=== PATIENT | female | born 1980 | race Caucasian/White ===

== ENCOUNTER → 2016-11-26 | Outpatient (CLI) | payer SELFPAY ==
[~2016-11-26] MED LIST: ESOM20CA PO; FURO-125 PO; METH4TAB PO; NAPR500T PO; ONDA-42 SL; POTA10TA10 PO; PRD20T PO; RNT150T PO; TRAM50TA2 PO
--- OUTSIDE RECORDS SUMMARY | 2016-11-26 16:42 | XMS REPORT | Continuity of Care Document ---
Author Author [facility] Organization [facility] Address Unknown Phone Unavailable Care Team Providers Care Tub Rider Name Role Phone LEXX SANZ MD PCP Insurance Providers Payer Name Policy Number Subscriber Name Relationship [facility] [id number] Rachel Ross 20 Self / Same As Patient Advance Directives Directive Response Recorded Date/Time Advance Directives No 04/09/14 10:54am Organ Donor Yes 04/09/14 10:54am Resuscitation Status Full Code 04/09/14 10:54am Problems No known problems or medical conditions. Medications Medication Dose Route Sig Days/Qty Instructions Order Date Discontinued Date Status Ranitidine HCl 1 Tab PO TWICE A DAY 30 Qty FOR STOMACH 05/20/11 Active Methylprednisolone 0 PO DIRECTED 1 Qty 04/09/14 04/09/14 Discontinued Ondansetron Hcl 4 Mg SL EVERY 4HRS 5 Qty 04/09/14 04/09/14 Discontinued Methylprednisolone 0 PO DIRECTED 1 Qty 04/09/14 Active Ondansetron Hcl 4 Mg SL EVERY 4HRS 5 Qty FOR NAUSEA AND VOMITING Active Social History Social History Problem Response Recorded Date/Time Alcohol Use Denies Use 04/09/2014 10:54am Recreational Drug Use No 04/09/2014 10:54am Smoking Status Never a Smoker 04/09/2014 10:54am Query Response Start Date Stop Date Smoking Status Never a Smoker Hospital Discharge Instructions No hospital discharge instructions. Plan of Care No plan of care. Functional Status No functional status results. Allergies, Adverse Reactions, Alerts Allergen Type Severity Reaction Status Last Updated Penicillins ([id number]) Allergy Active 05/20/11 TB SHOT Allergy Active 05/20/11 Immunizations No immunization records. Vital Signs Acute Vital Signs Vital Response Date/Time Temperature (Fahrenheit) 98.8 degrees F (97.6 - 99.5) Temperature Source Temporal Pulse Rate (adult) 88 bpm (60 - 90) Respiratory Rate 20 bpm (12 - 24) O2 Sat by Pulse Oximetry 96 % (88 - 100) Blood Pressure 148/87 mm Hg Pain Pain Intensity 0 Height (Feet) 5 feet Height (Calculated Centimeters) 152.931571 cm Weight (Pounds) 276 pounds Weight (Calculated Kilograms) 125.302678 kilograms Height 5 ft 0 in Weight 276 lb Body Mass Index 53.9 kg/m^2 Results Test Source Date Result Interp. Ref. Range Comments Activated Partial Thromboplast Time May 20, 2011 3:30pm 33 SEC N 24- 35 Alanine Aminotransferase (ALT/SGPT) May 20, 2011 3:30pm 36 U/L N 30- 65 Albumin May 20, 2011 3:30pm 3.7 G/DL N 3.4-5.0 Alkaline Phosphatase May 20, 2011 3:30pm 122 U/L N 50-136 Amylase Level May 20, 2011 3:30pm 37 U/L N 25-115 Aspartate Amino Transf (AST/SGOT) May 20, 2011 3:30pm 19 U/L N 15-37 B-Type Natriuretic Peptide May 20, 2011 3:30pm 21.9 PG/ML N 5.0- 100.0 BUN/Creatinine Ratio May 20, 2011 3:30pm 14 - Basophils # (Auto) May 20, 2011 3:30pm 0.1 10^3/uL N 0.0-0.1 Basophils (%) (Auto) May 20, 2011 3:30pm 1 % N 0-10 Blood Urea Nitrogen May 20, 2011 3:30pm 14 MG/DL N 7-18 Calcium Level May 20, 2011 3:30pm 8.7 MG/DL N 8.5-10.1 Carbon Dioxide Level May 20, 2011 3:30pm 29 MMOL/L N 21-32 Chloride Level May 20, 2011 3:30pm 104 MMOL/L N 101-110 Creatine Kinase MB May 20, 2011 3:30pm 0.9 NG/ML N 0.0-3.6 Creatinine May 20, 2011 3:30pm 1.0 MG/DL N 0.6-1.3 Eosinophils # (Auto) May 20, 2011 3:30pm 0.7 10^3/uL H 0.0-0.3 Eosinophils (%) (Auto) May 20, 2011 3:30pm 9 % N 0-10 Glucose Level May 20, 2011 3:30pm 92 MG/DL N 74-106 Hematocrit May 20, 2011 3:30pm 40 % N 35-52 Hemoglobin May 20, 2011 3:30pm 14.4 G/DL N 11.5-16.0 Lipase May 20, 2011 3:30pm 134 U/L N 73-393 Lymphocytes # (Auto) May 20, 2011 3:30pm 2.1 X 10^3 N 1.0-4.0 Lymphocytes (%) (Auto) May 20, 2011 3:30pm 28 % N 12-44 Mean Corpuscular Hemoglobin May 20, 2011 3:30pm 29 PG N 25-34 Mean Corpuscular Hemoglobin Concent May 20, 2011 3:30pm 36 G/DL N 32- 36 Mean Corpuscular Volume May 20, 2011 3:30pm 82 FL N 80-99 Mean Platelet Volume May 20, 2011 3:30pm 11.5 FL H 7.4-10.4 Monocytes # (Auto) May 20, 2011 3:30pm 0.6 X 10^3 N 0.0-1.0 Monocytes (%) (Auto) May 20, 2011 3:30pm 8 % N 0-12 Neutrophils # (Auto) May 20, 2011 3:30pm 4.1 X 10^3 N 1.8-7.8 Neutrophils (%) (Auto) May 20, 2011 3:30pm 55 % N 42-75 Platelet Count May 20, 2011 3:30pm 256 10^3/uL N 130-400 Potassium Level May 20, 2011 3:30pm 3.7 MMOL/L N 3.6-5.0 Prothromb Time International Ratio May 20, 2011 3:30pm 0.9 N 0.8-1.4 INTERPRETIVE DATASUGGESTED THERAPEUTIC RANGE FOR INR'S: VENOUS THROMBOSIS, PULMONARY EMBOLISM, OR PREVENTION OF SYSTEMIC EMBOLISM (EG. IN ATRIAL FIBRILLATION): 2.0 - 3.0 MECHANICAL PROSTHETIC HEART VALVES: 2.5 - 3.5* *NOTE: INR'S UP TO 4.5 MAY BE NECESSARY IN SELECTED GROUPS OF HIGH RISK PATIENTS. [employer] CONSENSUS CONFERENCE ON ANTITHROMBOTIC THERAPY (2000). Prothrombin Time May 20, 2011 3:30pm 12.7 SEC N 12.2-14.7 Red Blood Count May 20, 2011 3:30pm 4.91 10^6/uL N 4.35-5.85 Red Cell Distribution Width May 20, 2011 3:30pm 12.1 % N 10.0-14.5 Sodium Level May 20, 2011 3:30pm 138 MMOL/L N 135-145 Total Bilirubin May 20, 2011 3:30pm 0.4 MG/DL N 0.0-1.0 Total Creatine Kinase May 20, 2011 3:30pm 119 U/L N 1-159 Total Protein May 20, 2011 3:30pm 6.9 G/DL N 6.4-8.2 Troponin I May 20, 2011 3:30pm < 0.10 NG/ML 0.00-0.10 White Blood Count May 20, 2011 3:30pm 7.5 10^3/uL N 4.3-11.0 Estimat Glomerular Filtration Rate May 20, 2011 3:30pm > 60 - GFR INTERPRETIVE DATA UNITS FOR ESTIMATED GFR (eGFR): mL/min/1.73 M2 REFERENCE RANGE FOR ESTIMATED GFR (eGFR) eGFR NORMAL eGFR >60 MODERATELY DECREASED eGFR 30-59 SEVERLY DECREASED eGFR 15-29 KIDNEY FAILURE <15 (OR DIALYSIS) Procedures No known history of procedures. Encounters Encounter Location Date/Time Departed Emergency Room [facility] 04/09/14 10:28am Recent Diagnosis
--- NOTE | 2016-11-26 18:08 | Diagnostic Imaging Report ---
INDICATION: Positive TB skin test. FINDINGS: There were no radiographic features to suggest acute or chronic thoracic involvement by tuberculosis. The exam is stable and normal. The lungs are clear. The heart, hanna, and mediastinum appeared normal. No effusion, pneumothorax, or failure. IMPRESSION: Stable negative chest. Dictated by: Dictated on workstation # [id number]
== END ==
LOC: RAD 16:38
PROVIDERS: ATTEND Nurse Practitioner Family
DX: R76.11 Nonspecific reaction to tuberculin skin test without active tuberculosis (principal)
CPT/HCPCS: 71020

== ENCOUNTER → 2019-08-01 | Outpatient (CLI) | payer BC ==
[~2019-08-01] MED LIST changes: +NAPR-1071 PO; -NAPR500T PO
--- NOTE | 2019-08-01 15:38 | Diagnostic Imaging Report ---
PROCEDURE: US Thyroid. TECHNIQUE: Multiple real-time grayscale images were obtained of the thyroid in various projections. INDICATION: Thyroid swelling. FINDINGS: Right lobe of the thyroid measures 5.7 x 1.9 x 1.8 cm. Left lobe measures 5.1 x 1.7 x 1.4 cm. Isthmus measures 0.3 cm. There is a complex partially cystic, partially solid nodule in the inferior aspect of the left lobe of the thyroid measuring 2.1 x 1.3 x 1.5 cm. No other discrete solid or cystic nodules are appreciated. IMPRESSION: Complex partially cystic and solid nodule in the right lobe of the thyroid measuring up to 2.1 cm. This would be amenable to ultrasound-guided aspiration if clinically warranted. Otherwise unremarkable sonographic appearance of the thyroid. Dictated by: Dictated on workstation # [id number]
== END ==
LOC: RAD 14:50
PROVIDERS: ATTEND Nurse Practitioner Family
DX: E04.1 Nontoxic single thyroid nodule (principal)
CPT/HCPCS: 76536

== ENCOUNTER → 2019-08-10 | Outpatient (CLI) | payer BC ==
[~2019-08-10] VITALS: Ht 167.7 cm; Wt 124.5 kg
[~2019-08-10] MED LIST changes: +LIDOCAINE 1% INJ 20 ML 20 ML VIAL INJ ONE
--- NOTE | 2019-08-10 18:23 | Diagnostic Imaging Report ---
INDICATION: Thyroid nodule. Patient presents for ultrasound-guided fine-needle aspiration. Patient was brought to the procedure room, placed on the table in the supine position. Ultrasound imaging of the right neck was performed to evaluate appropriate entry site. The right neck was then prepped and draped in the usual sterile fashion. Small amount of 1% lidocaine was utilized for local anesthesia. A total of 4 passes were made into the solid nodule in the right lobe of the thyroid utilizing a 25-gauge needle. Fine-needle aspiration technique was performed. Slovan were removed and hemostasis was obtained. Patient tolerated the procedure well and left the department in stable condition. IMPRESSION: Ultrasound-guided fine needle aspiration right lobe thyroid nodule. Pathology results are currently pending. Dictated by: Dictated on workstation # [id number]
== END ==
LOC: RAD 13:39
PROVIDERS: ATTEND Nurse Practitioner Family
DX: E04.1 Nontoxic single thyroid nodule (principal)

== ENCOUNTER 2022-02-11 08:17 | Emergency (ER) | payer BC ==
[~2022-02-11] VITALS: Ht 167 cm; Wt 122.0 kg
[~2022-02-11 08:17] MED LIST changes: -LIDOCAINE 1% INJ 20 ML 20 ML VIAL INJ ONE; -TRAM50TA2 PO; +TRM50T PO
[2022-02-11] MEDS ORDERED: ONDANSETRON 4 MG (ZOFRAN) ORAL DISSOLVE TAB PO ONE (08:30)
[2022-02-11] MEDS ORDERED: NAPROXEN 250 MG (NAPROSYN) TABLET PO ONE (08:30)
--- NOTE | 2022-02-11 08:33 | ED Lower Extremity ---
General Chief Complaint: Lower Extremity Stated Complaint: R FOOT PAIN Nursing Triage Note: PT C/O R FOOT PAIN ONSET WEDNESDAY. PT REPORT STEPPED ON THE METAL BUCKLE OF HER SANDALS, DID NOT PUNCTURE SKIN, BUT HAS BEEN HAVING PAIN SINCE. Source: patient Exam Limitations: no limitations History of Present Illness Date Seen by Provider: February 11, 2022 Time Seen by Provider: 08:22 Initial Comments Patient is a 41-year-old female who presents to the emergency department today with a chief complaint of right foot pain. Patient states Wednesday she stepped on the bottle of a sandal, the point of the buckle was pointing upwards. She did not fall. She had immediate pain. Patient denies any puncture through the skin. She states since she stepped on it she has been having progressive, worsening pain in the foot. It is swollen, warm and red. She states she does not take any daily medications. She has been taking Tylenol for pain her last dose was last night. She states it is unbearable to try to bear weight on her right foot. She did try some ice for about 20 minutes but it seemed to intensify the pain. She denies numbness weakness or tingling in the leg. No known fevers at home. All other review of systems reviewed and negative except as stated. Onset: other (Wednesday (3 days)) Severity: severe Pain/Injury Location: right foot Method of Injury: other Modifying Factors: Worse With Movement Allergies and Home Medications Allergies Coded Allergies: Penicillins (Unverified Allergy, Unknown, 08/10/19) Uncoded Allergies: TB SHOT (Allergy, Unknown, 08/10/19) Patient Home Medication List Home Medication List Reviewed: Yes Cephalexin (Cephalexin) 500 Mg Tablet, 500 MG PO TID Prescribed by: DORIS ACUÑA on 02/11/22 0904 Esomeprazole Magnesium (Nexium) 20 Mg Capsule.dr, 20 MG PO for HEARTBURN, (Reported) Entered as Reported by: FLORIN LEE on 08/14/16 1359 Furosemide (Lasix) 20 Mg Tablet, 20 MG PO PRN, (Reported) Entered as Reported by: FLORIN LEE on 08/14/16 1359 Naproxen (Naprosyn) 500 Mg Tablet, 500 MG PO BID PRN for PAIN Prescribed by: IGGY RUBIN on 08/14/16 1625 Ondansetron (Ondansetron Odt) 4 Mg Tab.rapdis, 4 MG PO Q8H PRN for nausea Prescribed by: DORIS ACUÑA on 02/11/22 09 Potassium Chloride (Potassium Chloride) 10 Meq Tablet.er, 10 MEQ PO, (Reported) Entered as Reported by: FLORIN LEE on 08/14/16 1359 Prednisone (Prednisone) 20 Mg Tab, 40 MG PO DAILY Prescribed by: IGGY RUBIN on 08/14/16 162 Tramadol HCl (Tramadol HCl) 50 Mg Tablet, 50 MG PO Q4H PRN for PAIN Prescribed by: IGGY RUBIN on 08/14/16 162 Tramadol HCl (Tramadol HCl) 50 Mg Tablet, 50 MG PO Q6H PRN for PAIN Prescribed by: DORIS ACUÑA on 02/11/22 09 Review of Systems Constitutional: see HPI EENTM: no symptoms reported Respiratory: no symptoms reported Cardiovascular: no symptoms reported Gastrointestinal: nausea Musculoskeletal: joint pain (right foot) Skin: no symptoms reported Psychiatric/Neurological: No Symptoms Reported All Other Systems Reviewed Negative Unless Noted: Yes Past Etgclkj-Kgevqn-Zdbnfw Hx Patient Social History Tobacco Use?: No Use of E-Cig and/or Vaping dev: No Substance use?: No Alcohol Use?: No Pt feels they are or have been: No Immunizations Up To Date First/Initial COVID19 Vaccinat: YES, UNK WHEN Second COVID19 Vaccination Cl: YES, UNK WHEN COVID19 Vaccine Decorating Machine T[employer]: [employer] Seasonal Allergies Seasonal Allergies: No Past Medical History Tonsillectomy Last Menstrual Period: Jan 09, 2022 Gastroesophageal Reflux Family Medical History Other Conditions/Hx Physical Exam Vital Signs Vital Signs - First Documented 02/11/22 08:20 Temp 35.8 Pulse 110 Resp 20 B/P (MAP) 150/88 (108) Pulse Ox 97 O2 Delivery Room Air Capillary Refill : Height, Weight, BMI Height: 5'7" Weight: 275lbs. oz. 124.075084vh; 43.00 BMI Method:Stated General Appearance: WD/WN, no apparent distress Cardiovascular: regular rate, rhythm Respiratory: lungs clear, normal breath sounds, no respiratory distress, no accessory muscle use Hips: bilateral hip normal range of motion Legs: bilateral leg non-tender, bilateral leg normal inspection, bilateral leg normal range of motion, bilateral leg no evidence of injury Knees: bilateral knee non-tender, bilateral knee normal inspection, bilateral knee normal range of motion, bilateral knee no evidence of injury Ankles: bilateral ankle non-tender, bilateral ankle normal inspection, bilateral ankle normal range of motion, bilateral ankle no evidence of injury Feet: right foot pain, right foot soft tissue tenderness, right foot swelling (swelling plantar surface at the instep with tenderness and erythema) Neurologic/Psychiatric: alert, normal mood/affect, oriented x 3 Skin: normal color, warm/dry, other (erythema plantar surface of the right foot) Progress/Results/Core Measures Results/Orders Lab Results Laboratory Tests Test 02/11/22 08:35 Range/Units Glucometer 123 H 70-110 MG/DL My Orders Orders - DORIS ACUÑA MD Accucheck Stat ONCE (02/11/22 08:29) Naproxen Tablet (Naprosyn Tablet) (02/11/22 08:30) Ondansetron Oral Dissolve Tab (Zofran (02/11/22 08:30) Foot, Right, 3 View (02/11/22 08:29) Medications Given in ED Current Medications Medications Dose Ordered Sig/Maurizio Route Start Time Stop Time Status Last Admin Dose Admin Naproxen 500 mg ONCE ONCE PO 02/11/22 08:30 02/11/22 08:31 DC 02/11/22 08:33 500 MG Ondansetron HCl 4 mg ONCE ONCE PO 02/11/22 08:30 02/11/22 08:31 DC 02/11/22 08:33 4 MG Vital Signs/I&O 02/11/22 02/11/22 08:20 09:06 Temp 35.8 Pulse 110 88 Resp 20 18 B/P (MAP) 150/88 (108) 127/76 Pulse Ox 97 96 O2 Delivery Room Air Room Air Blood Pressure Mean: 108 Diagnostic Imaging Diagonstic Imaging: Xray Comments [facility] [place] NAME: JIM ROSS MED REC#: [id number] PT STATUS: REG ER : 1980 PHYSICIAN: DORIS ACUÑA MD ADMIT DATE: 02/11/22/ER Draft Date of Exam:02/11/22 FOOT, RIGHT, 3 VIEW INDICATION: Right foot pain. TECHNIQUE: AP, oblique, and lateral views of the right foot were obtained. FINDINGS: No definite acute fracture is seen. There is plantar and posterior calcaneal spurring. There are some calcifications adjacent to the base of the 5th metatarsal which appear chronic and may be the result of old injury. IMPRESSION: Chronic changes as described above with no acute abnormality. Dictated on workstation # [id number] Dict: 02/11/22 [id number] Trans: 02/11/22 [id number] [id number] Interpreted by: BRISEIDA HESTER MD Electronically signed by: Departure Impression Primary Impression: Cellulitis Qualified Codes: L03.115 - Cellulitis of right lower limb Disposition: HOME, SELF-CARE Condition: Improved Departure-Patient Inst. Decision time for Depature: 09:01 Referrals: ARNOL LOPEZ MD (PCP/Family) Primary Care Physician Patient Instructions: Cellulitis (Skin Infection), Adult ED Add. Discharge Instructions: Start taking the antibiotics today, 3 times a day for 10 days. Please finish the entire course. I have prescribed you pain medication and nausea medication as well. Ibuprofen can help with your pain as well. You can also take 3 tablets which is 600 mg every 6-8 hours with food as needed. Continue to ice and elevate your right foot as tolerated. Please call and make a follow-up appointment with your primary care physician in the next week to make sure you are continuing to improve. If after a couple of days you notice that the redness, pain and swelling are not improving please come back to the emergency room for reevaluation. Certainly come back sooner for any new, concerning or emergent complaints. Scripts Ondansetron (Ondansetron Odt) 4 Mg Tab.rapdis 4 MG PO Q8H PRN for nausea, #15 TAB Prov: DORIS ACUÑA MD 02/11/22 Tramadol HCl (Tramadol HCl) 50 Mg Tablet 50 MG PO Q6H PRN for PAIN, #10 TAB 0 Refills Prov: DORIS ACUÑA MD 02/11/22 Cephalexin (Cephalexin) 500 Mg Tablet 500 MG PO TID for 10 Days, #30 TAB Prov: DORIS ACUÑA MD 02/11/22 Copy Copies To 1: ARNOL LOPEZ MD ARIANNEDORIS MCMAHON MD February 11, 2022 08:33
--- NOTE | 2022-02-11 08:47 | Diagnostic Imaging Report ---
INDICATION: Right foot pain. TECHNIQUE: AP, oblique, and lateral views of the right foot were obtained. FINDINGS: No definite acute fracture is seen. There is plantar and posterior calcaneal spurring. There are some calcifications adjacent to the base of the 5th metatarsal which appear chronic and may be the result of old injury. IMPRESSION: Chronic changes as described above with no acute abnormality. Dictated by: Dictated on workstation # [id number]
[2022-02-11] MEDS ORDERED: CEPH500T PO (09:04)
[2022-02-11] MEDS ORDERED: TRM50T PO (09:04)
[2022-02-11] MEDS ORDERED: ONDA4TAB11 PO (09:04)
[2022-02-11 09:06] VITALS: BP 127/76
== END 2022-02-11 09:06 | disposition home or self-care (01) ==
LOC: EDUNIT# 08:17 → ER 08:18
DX: L03.115 Cellulitis of right lower limb (principal); Z88.0 Allergy status to penicillin
CPT/HCPCS: 73630; 82947

== ENCOUNTER 2023-02-10 05:34 | Outpatient (CLI) | payer BC ==
[~2023-02-10] VITALS: Ht 170.2 cm; Wt 125.9 kg
[~2023-02-10 05:34] MED LIST changes: +CEPH500T PO; +ONDA4TAB11 PO
[2023-02-10] MEDS ORDERED: OMEP-254 PO (11:06)
== END 2023-02-10 11:09 ==
LOC: PREOP 05:34
PROVIDERS: ATTEND Internal Medicine
DX: Z01.818 Encounter for other preprocedural examination (principal)

== ENCOUNTER 2023-02-19 07:04 | Day surgery (SDC) | payer BC ==
[~2023-02-19] VITALS: Ht 170.2 cm; Wt 125.9 kg
[~2023-02-19 07:04] MED LIST changes: +OMEP-254 PO
[2023-02-19] MEDS ORDERED: LACTATED RINGERS 1,000 ML IV STA (07:08)
[2023-02-19] MEDS ORDERED: HURRICAINE EXT TUBE (BENZOCAINE) XX PRN (07:15)
[2023-02-19 07:25] VITALS: BP 158/92
[2023-02-19] MEDS ORDERED: MIDAZOLAM 2 MG/2 ML (VERSED) VIAL ONE (07:43)
[2023-02-19] MEDS ORDERED: PROPOFOL INJECTION 50 ML IV ONE (07:43)
[2023-02-19] MEDS ORDERED: ONDANSETRON 4 MG/2 ML (SDV) Z0FRAN ONE (07:51)
--- NOTE | 2023-02-19 07:51 | Pre-Op Note & Conscious Sedat ---
Pre-Operative Progress Note Date H&P Reviewed: February 19, 2023 Time H&P Reviewed: 07:50 History & Physical: H&P Reviewed, Patient Examed, No changes noted Pre-Op Diagnosis: dysphagia Moderate Sedation PreProcedure ASA Score 2 Airway Lungs Heart ASA score ASA 1: a normal healthy patient ASA 2: a patient with a mild systemic disease (mid diabetes, controlled hypertension, obesity ASA 3: a patient with a severe systemic disease that limits activity (angina, COPD, prior Myocardial infarction) ASA 4: a patient with an incapacitating disease that is a constant threat to life (CHF, renal failure) ASA 5: a moribund patient not expected to survive 24 hrs. (ruptured aneurysm) ASA 6: a declared brain- patient whose organs are being harvested. For emergent operations, add the letter E after the classification Mallampati Classification Grade 2 Sedation Plan Analgesia, Amnesia, Plan communicated to team members, Discussed options with patient/fam, Discussed risks with patient/fam The patient is an appropriate candidate to undergo the planned procedure, sedation, and anesthesia. The patient immediately re-assessed prior to indication. ANOOP LOVE MD February 19, 2023 07:51
[2023-02-19 08:10] VITALS: BP 114/60
--- NOTE | 2023-02-19 08:11 | Progress Note-Post Operative ---
Post-Procedure Note Physician (s)/Assistant Professor Of German (s) Physician ANOOP LOVE MD Pre-Procedure Diagnosis Pre-Procedure Diagnosis: dysphagia Post-Procedure Diagnosis Post-operative diagnosis: The endoscope was inserted into the oral cavity and under direct visualization the esophagus is intubated. The endoscope was passed down the esophagus to the stomach and second portion of the duodenum. A careful inspection was made as the endoscope was withdrawn. Findings proximal mid and distal esophagus were unremarkable Z-line was distinct without evidence for erosive esophagitis or Quezada's change. Biopsies from the distal and midesophagus were obtained and submitted for histopathology evaluation and to evaluate for eosinophilic esophagitis. No evidence for hiatal hernia formation was noted. The cardia and fundus of the stomach were unremarkable. 3 erythematous patent to 10 mm nodules without ulceration were noted in the distal antrum photo was obtained there is no evidence for erosion or ulceration they were soft on biopsy which was obtained and submitted for histopathology. The pylorus the pyloric channel duodenal bulb and second portion of duodenum were unremarkable with normal villous appearing architecture no evidence for erosion or ulceration. A/P 1. No evidence for erosive esophagitis or mechanical obstruction was noted today. Biopsies were obtained and submitted for evaluation for eosinophilic esophagitis. 2. 3 8Three 8 to 10 mm erythematous nodules were noted in the distal antrum 1 was biopsied and submitted for histopathology there was no evidence for induration no other abnormalities noted on today's procedure. ANOOP LOVE MD February 19, 2023 08:11
[2023-02-19 08:15] VITALS: BP 115/66
[2023-02-19 08:20] VITALS: BP 134/70
[2023-02-19 08:25] VITALS: BP 132/78
[2023-02-19 09:02] VITALS: BP 132/78
--- NOTE | 2023-02-19 10:27 | Anesthesia-General Post-Op ---
MAC Patient Condition Mental Status/LOC: Same as Preop Cardiovascular: Satisfactory Nausea/Vomiting: Absent Respiratory: Satisfactory Pain: Controlled Complications: Absent Post Op Complications Complications None Follow Up Care/Instructions Patient Instructions None needed. Anesthesiology Discharge Order Discharge Order Patient is doing well, no complaints, stable vital signs, no apparent adverse anesthesia problems. No complications reported per nursing. MICHELLE KO CRNA February 19, 2023 10:27
== END 2023-02-19 09:06 | disposition home or self-care (01) ==
LOC: ENDO 07:04
PROVIDERS: ATTEND Internal Medicine
DX: K20.0 Eosinophilic esophagitis (principal); K31.89 Other diseases of stomach and duodenum; Z68.41 Body mass index [BMI] 40.0-44.9, adult; E66.01 Morbid (severe) obesity due to excess calories
CPT/HCPCS: 84703; 88305